=== PATIENT | male | born 1980 | race Caucasian/White ===

== ENCOUNTER 2016-12-20 19:43 | Outpatient (CLI) | payer OTHER ==
--- NOTE | 2016-12-20 21:07 | XRAY Preliminary Report ---
Exam: XR Knee 3 View RT IMPRESSION: Small joint effusion, otherwise unremarkable right knee radiography. RADIA The call report notification system was initiated by Dr. Luke Norris at 21:00 hrs on 12/20/16. The above findings were discussed with Kirsten Reaves by Dr. Luke Norris at 21:05 hrs on 12/20/16. SITE ID: [id number]
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
== END 2016-12-20 19:44 | disposition home or self-care (01) ==
LOC: DI 19:43
PROVIDERS: ATTEND Physician Assistant
DX: M25.461 Effusion, right knee (principal)

== ENCOUNTER 2017-02-04 05:43 | Day surgery (SDC) | payer OTHER ==
[2017-02-04] MEDS ORDERED: ACETAMINOPHEN 1,000 MG/100 ML 100 ML IV ONE ×2 (06:24→07:30)
[2017-02-04] MEDS ORDERED: CELECOXIB 100 MG CAPSULE PO ONE (06:25)
[2017-02-04] MEDS ORDERED: ceFAZolin 2 GM/50 ML 50 ML IV ONE (06:26)
[2017-02-04] MEDS ORDERED: LACTATED RINGERS 1,000 ML IV ONE ×2 (06:47→13:13)
[2017-02-04] MEDS ORDERED: HYDROmorphone 1 MG/ML SYRINGE IVP ONE (07:30)
[2017-02-04] MEDS ORDERED: fentaNYL 100 MCG/2 ML VIAL IVP ONE (07:30)
[2017-02-04] MEDS ORDERED: PROPOFOL 200 MG/20 ML VIAL IVP ONE (07:30)
[2017-02-04] MEDS ORDERED: LIDOCAINE-MPF 2% 5 ML VIAL IM ONE (07:30)
[2017-02-04] MEDS ORDERED: DEXAMETHASONE 4 MG/ML VIAL IVP ONE (07:30)
[2017-02-04] MEDS ORDERED: ONDANSETRON 4 MG/2 ML VIAL IVP ONE (07:30)
[2017-02-04] MEDS ORDERED: MIDAZOLAM 2 MG/2 ML VIAL IVP ONE (07:30)
[2017-02-04] MEDS ORDERED: BUPIVACAINE 0.25% PF 30 ML VIAL SUBQ ONE ×2 (08:16→10:23)
[2017-02-04] MEDS: MEPERIDINE 50 MG/ML SYRINGE ONE ×2 (10:54→11:02)
[2017-02-04] MEDS ORDERED: ONDANSETRON 4 MG/2 ML VIAL ONE (11:14)
[2017-02-04] MEDS: HYDROmorphone 1 MG/ML SYRINGE ONE ×3 (11:27→12:05)
[2017-02-04 15:03] VITALS: BP 135/85
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
== END 2017-02-04 05:44 | disposition home or self-care (01) ==
LOC: SDS 05:43
PROVIDERS: ATTEND Orthopaedic Surgery
PROC: 0SQC4ZZ Repair Right Knee Joint, Percutaneous Endoscopic Approach (ICD-10-PCS; 2017-02-04)
PROC: 0MUN47Z Supplement Right Knee Bursa and Ligament with Autologous Tissue Substitute, Percutaneous Endoscopic Approach (ICD-10-PCS; principal; 2017-02-04 07:30)
DX: S83.511A Sprain of anterior cruciate ligament of right knee, initial encounter (principal); S83.281A Other tear of lateral meniscus, current injury, right knee, initial encounter
CPT/HCPCS: 29882; 29888; A9270; C1713; J0131; J0690; J1170; J7120

== ENCOUNTER 2018-09-03 07:22 | Emergency (ER) | payer OTHER ==
[2018-09-03 07:32] VITALS: BP 142/84
--- NOTE | 2018-09-03 08:14 | XRAY Report ---
Reason: pain swelling after fall Procedure Date: 09/03/2018 Accession Number: [id number] / [id number] Procedure: XR - Knee 4 View LT CPT Code: FULL RESULT: EXAM: LEFT KNEE RADIOGRAPHY EXAM DATE: 09/03/2018 07:45 AM. CLINICAL HISTORY: Pain swelling after fall. COMPARISON: KNEE 3 VIEW RT 12/20/2016. TECHNIQUE: 3 views. FINDINGS: Bones: Normal. No fractures or bone lesions. Joints: Small suprapatellar effusion. Soft Tissues: Normal. No soft tissue swelling. IMPRESSION: Small suprapatellar effusion, otherwise normal knee radiography. [facility]
--- NOTE | 2018-09-03 09:27 | ED Physician Documentation ---
PD HPI LOWER EXT INJURY - Stated complaint Stated Complaint: L KNEE INJ - Chief complaint Chief Complaint: Ext Problem - History obtained from History obtained from: Patient - History of Present Illness PD HPI LOW EXT INJURY LOCATION: Left, Knee Type of injury: Fall, Twist (snowboarding yesterday at [employer]) Timing - onset: Yesterday Timing - details: Abrupt onset (he was able to snowboard down slowly after a few minutes rest.), Still present (hurts with walking and twisting; pain at medial knee. Has some clicking feeling at times.) Improved by: Rest Worsened by: Moving, Other (walking mostly). No: Palpating Associated symptoms: No: Weakness, Numbness, Swelling Similar symptoms before: Diagnosis (had ACL injury with repair of other knee in the past and has somewhat similar feeling.) Recently seen: Not recently seen Review of Systems Skin: denies: Abrasion (s), Laceration (s) Musculoskeletal: reports: Joint pain. denies: Joint swelling Neurologic: denies: Focal weakness, Numbness PD PAST MEDICAL HISTORY - Past Medical History Cardiovascular: None Respiratory: None Endocrine/Autoimmune: None GI: None : None Psych: None Musculoskeletal: Other Derm: None - Past Surgical History HEENT: Rhinoplasty - Present Medications Home Medications: Ambulatory Orders Medication Instructions Recorded Confirmed Ibuprofen [Motrin] 800 mg PO Q8H PRN 02/01/17 02/01/17 Ibuprofen 600 mg PO TID PRN #25 tablet 09/03/18 - Allergies Allergies/Adverse Reactions: Allergies Allergy/AdvReac Type Severity Reaction Status Date / Time No Known Drug Allergies Allergy Verified 09/03/18 07:32 - Social History Does the pt smoke?: No Smoking Status: Never smoker Does the pt drink ETOH?: No Does the pt have substance abuse?: No PD ED PE NORMAL - Vitals Vital signs reviewed: Yes - General General: Alert and oriented X 3, No acute distress, Well developed/nourished - Derm Derm: Normal color, Warm and dry - Extremities Extremities: Other (No effusion. Tender at medial joint line and pain with valgus stress. slight widening but limited by pain to assess well. No pain nor laxity with cruciate testing. Pain medially with impaction. ) - Neuro Neuro: Alert and oriented X 3, No motor deficit, No sensory deficit Results - Vitals Vitals: Vital Signs - 24 hr 09/03/18 07:29 Temperature 36.9 C Heart Rate 88 Respiratory 18 Rate Blood Pressure 142/84 H O2 Saturation 97 Oxygen O2 Source Room air - Rads (name of study) left knee Radiology: Prelim report reviewed (no fractures), See rad report PD MEDICAL DECISION MAKING - ED course Complexity details: considered differential (seems likely MCL. Does not seem ACL. consider meniscal injury too though. ), d/w patient Departure - Departure Disposition: 01 Home, Self Care Clinical Impression: Knee MCL sprain Qualifiers: Encounter type: initial encounter Laterality: left Qualified Code(s): S83.412A - Sprain of medial collateral ligament of left knee, initial encounter Acute meniscal injury of knee Qualifiers: Encounter type: initial encounter Laterality: left Qualified Code(s): S83.8X2A - Sprain of other specified parts of left knee, initial encounter Condition: Stable Record reviewed to determine appropriate education?: Yes Instructions: ED Meniscal Injury Knee Poss Follow-Up: BRYNN BUTCHER [Primary Care Provider] - Prescriptions: Ibuprofen 600 mg PO TID PRN #25 tablet PRN Reason: Pain Comments: Your x-ray is normal. Clinically I feel like you have mainly an MCL strain with may be partial tear. Also consider a medial meniscal injury. I would suggest better support of the knee when up and around for the first week at least with the knee brace. Use ibuprofen or naproxen 2-3 times daily for inflammation and pain. Ice it often today. Add Tylenol if needed for pain. Follow-up with your primary care or orthopedics in about 3-5 days after the acute pain of it has improved. At that point I recheck might be better able to tell the degree of injury and if continued conservative treatment is still appropriate. I think this will heal up with just the knee brace and time and not need any repair. I do not get a sense of an ACL injury or a large meniscal injury. Forms: Activity restrictions Discharge Date/Time: 09/03/18 10:00
== END 2018-09-03 10:00 | disposition home or self-care (01) ==
LOC: ED 07:22
DX: S83.412A Sprain of medial collateral ligament of left knee, initial encounter (principal); S83.8X2A Sprain of other specified parts of left knee, initial encounter; V00.311A Fall from snowboard, initial encounter; Y93.23 Activity, snow (alpine) (downhill) skiing, snowboarding, sledding, tobogganing and snow tubing; X50.1XXA Overexertion from prolonged static or awkward postures, initial encounter
CPT/HCPCS: 99283